=== PATIENT | female | born 1980 ===

== ENCOUNTER 2023-05-20 06:24 | Day surgery (SDC) | payer OTHER ==
[~2023-05-20 06:24] MED LIST: COZAAR25 MG PO; HYDROCHLOROTH12.5 MG PO
[2023-05-20] MEDS ORDERED: CEFAZOLIN SODIUM 1,000 MG VIAL ONE (08:35)
[2023-05-20] MEDS ORDERED: LIDOCAINE HCL/EPINEPHRINE 10MG/ML 1% 50ML IJ ONE (09:45)
[2023-05-20] MEDS ORDERED: CEFAZOLIN SODIUM 1,000 MG VIAL IV ONE (09:45)
[2023-05-20] MEDS ORDERED: LIDOCAINE HCL 100 MG/10ML VIAL IJ ONE (09:45)
== END 2023-05-20 11:35 | disposition home or self-care (01) ==
LOC: CIR.AMB 06:24
PROVIDERS: ATTEND Surgery
DX: L72.0 Epidermal cyst (principal); Z88.1 Allergy status to other antibiotic agents; Z20.822 Contact with and (suspected) exposure to COVID-19